=== PATIENT | male | born 1995 ===

== ENCOUNTER 2016-10-30 14:20 | Emergency (ER) | payer OTHER ==
[2016-10-30 14:55] VITALS: BP 114/74; PULSE 67; RESP 18; TEMP 98.2; O2SAT 95
[2016-10-30] MEDS ORDERED: Naproxen 550 mg Tab PO STA (16:17)
[2016-10-30 16:18] LABS: URINE BILIRUBIN NEGATIVE (NEGATIVE); URINE BLOOD NEGATIVE (NEGATIVE); URINE COLOR Yellow (YELLOW); URINE GLUCOSE (UA) NORMAL (Normal); URINE KETONE NEGATIVE (NEGATIVE); URINE LEUKOCYTE ESTERASE NEG Leu/uL (Negative); URINE PROTEIN NEGATIVE (NEGATIVE); URINE UROBILINOGEN NORMAL mg/dL (0.2-1.0); WBC URINE < 1 /hpf (0-5)
[2016-10-30] MEDS ORDERED: Naproxen 550 mg Tab PO ONE (16:25)
--- NOTE | 2016-10-30 16:43 | RAD ---
HISTORY: Left chest pain COMPARISON: None available. TECHNIQUE: Chest PA and lateral FINDINGS: LUNGS: No focal consolidation. 10 mm nodular density projecting over the right lung apex appears to be external to the patient likely related to their clothing. An additional similar-appearing nodular density projects over the soft tissues lateral to the right lung apex. Correlate clinically. Please note that chest x-ray has limited sensitivity for the detection of pulmonary masses. PLEURA: No significant pleural effusion identified. No definite pneumothorax . CARDIOVASCULAR: The cardiomediastinal silhouette appears within normal limits of size. OSSEOUS STRUCTURES: No acute osseous abnormality identified. VISUALIZED UPPER ABDOMEN: Unremarkable. OTHER FINDINGS: None. IMPRESSION: No focal consolidation, significant pleural effusion, or definite pneumothorax identified. 10 mm nodular density projecting over the right lung apex appears to be external to the patient likely related to their clothing. An additional similar-appearing nodular density projects over the soft tissues lateral to the right lung apex. Correlate clinically.
--- NOTE | 2016-10-30 17:38 | US ---
HISTORY: Right testicle pain TECHNIQUE: Realtime sonography through the scrotum with color and doppler flow. COMPARISON: Testicular ultrasound performed 06/16/16 FINDINGS: RIGHT TESTICLE: Measures 4.7 x 2.5 x 3.3 cm. Homogeneous echotexture. Blood flow is demonstrated. RIGHT EPIDIDYMIS: Measures approximately 1.1 x 0.7 x 1.0 cm. LEFT TESTICLE: Measures 5.1 x 2.3 x 3.2 cm. Homogeneous echotexture. Blood flow is demonstrated. LEFT EPIDIDYMIS: Measures approximately 1.2 x 0.9 x 2.0 cm. HYDROCELE: None. VARICOCELE: None. OTHER FINDINGS: None. IMPRESSION: Unremarkable testicular ultrasound as above.
--- NOTE | 2016-10-30 17:53 | C.PDOC ---
Time Seen by Provider: 10/30/16 15:26 Chief Complaint (Nursing): Chest Pain History Per: Patient Onset/Duration Of Symptoms: Days (1) Current Symptoms Are (Timing): Gone Severity: Moderate Quality: Sharp, "Pain" Associated Symptoms: denies: Nausea, Dyspnea, Diaphoresis, Syncope Modifying Factors: None Exacerbating Factors: None Alleviating Factors: None Additional History Per: Prior Records Past Medical History Reviewed: Historical Data, Nursing Documentation, Vital Signs Vital Signs: Last Vital Signs Temp 98.2 F 10/30/16 14:52 Pulse 67 10/30/16 14:52 Resp 18 10/30/16 14:52 BP 114/74 10/30/16 14:52 Pulse Ox 95 10/30/16 14:52 - Medical History PMH: No Chronic Diseases Surgical History: No Surg Hx Family History: States: Unknown Family Hx - Social History Hx Tobacco Use: No Hx Alcohol Use: No Hx Substance Use: No - Immunization History Hx Tetanus Toxoid Vaccination: No Hx Influenza Vaccination: No Hx Pneumococcal Vaccination: No Review Of Systems Except As Marked, All Systems Reviewed And Found Negative. Constitutional: Negative for: Fever, Weakness Cardiovascular: Negative for: Chest Pain Respiratory: Negative for: Shortness of Breath Gastrointestinal: Negative for: Nausea, Vomiting Genitourinary: Positive for: Scrotal Pain (right). Negative for: Dysuria, Penile Discharge Musculoskeletal: Negative for: Neck Pain Skin: Negative for: Rash Neurological: Negative for: Weakness, Numbness, Seizures, Altered Mental Status Physical Exam - Physical Exam Appears: Non-toxic, No Acute Distress Skin: Normal Color, Warm, Dry, No Rash Head: Atraumatic, Normacephalic Eye(s): bilateral: Normal Inspection, PERRL, EOMI Neck: Normal ROM, Supple Chest: Symmetrical, No Deformity Cardiovascular: Rhythm Regular Respiratory: Normal Breath Sounds, No Accessory Muscle Use Gastrointestinal/Abdominal: Soft, No Tenderness Male Genital: Testicular Tenderness (right), No Testicular Swelling, No Inguinal Tenderness, No Inguinal Swelling, No Scrotal Swelling, No Circumcised Extremity: Normal ROM Neurological/Psych: Oriented x3, Normal Motor, Normal Sensation ED Course And Treatment ECG: Interpreted By Me, Viewed By Me ECG Rhythm: Sinus Rhythm ECG Interpretation: No Acute Changes Rate From EC O2 Sat by Pulse Oximetry: 95 Pulse Ox Interpretation: Normal - Radiology CXR: Viewed By Me, Read By Radiologist CXR Interpretation: Yes: No Acute Disease, Heart Size (wnl) - CT Scan/US Testicular pain Other Rad Studies (CT/US): Read By Radiologist, Radiology Report Reviewed CT/US Interpretation: IMPRESSION: Unremarkable testicular ultrasound as above. Reassessment Condition: Improved Disposition Counseled Patient/Family Regarding: Studies Performed, Diagnosis, Need For Followup, Rx Given - Disposition Referrals: Chester Richmond MD [Family Provider] - Disposition: HOME/ ROUTINE Disposition Time: 17:54 Condition: IMPROVED Additional Instructions: Follow up with your doctor this week for further evaluation and treatment. Return to the ER if you develop redness, swelling, fever, shortness of breath, worsening of symptoms or if you have any other concerns. Prescriptions: Naproxen [Naprosyn] 1 tab PO BID PRN #20 tab PRN Reason: Pain Instructions: Chest Pain (ED), Testicle Pain (ED) Print Language: KYRGYZ - Clinical Impression Clinical Impression: Pain in right testicle, Left sided chest pain
--- NOTE | 2016-10-31 11:45 | CARD ---
APPROVED REPORT EKG Measurement Heart [id number] <Conclusion> Normal sinus rhythm Normal ECG
== END 2016-10-30 18:01 | disposition home or self-care (01) ==
LOC: C.ER 14:20
DX: N50.811 Right testicular pain (principal); R07.9 Chest pain, unspecified
CPT/HCPCS: 71020; 76870; 81001; 87086; 87491; 87591; 93005; 99285; G0480 ×8

== ENCOUNTER 2016-12-12 02:17 | Emergency (ER) | payer OTHER ==
[2016-12-12 02:30] VITALS: RESP 20; O2SAT 98
--- NOTE | 2016-12-12 02:51 | C.PDOC ---
History Of Present Illness Patient is a 21 year old male who presents to the ER with a complaint of a toothache for the past 2 days that has worsened Now. Patient states he has an appointment tomorrow with dentist, however, motrin is no longer helping and would like something for the pain. Denies any fever, recent trauma, dental workup, or facial / neck swelling. Time Seen by Provider: 12/12/16 02:46 Chief Complaint (Nursing): Dental Pain History Per: Patient History/Exam Limitations: no limitations Onset/Duration Of Symptoms: Hrs (Worsening today), Days (2) Current Symptoms Are (Timing): Still Present Quality: Positive for: Other (Tooth ache) Recent travel outside of the [place] States: No Past Medical History Reviewed: Historical Data, Nursing Documentation, Vital Signs Vital Signs: Last Vital Signs Temp 98 F 12/12/16 03:51 Pulse 82 12/12/16 03:51 Resp 20 12/12/16 03:51 BP 167/88 H 12/12/16 03:51 Pulse Ox 98 12/12/16 03:51 - Medical History PMH: No Chronic Diseases Surgical History: No Surg Hx Family History: States: Unknown Family Hx - Social History Hx Tobacco Use: No Hx Alcohol Use: Yes Hx Substance Use: No - Immunization History Hx Tetanus Toxoid Vaccination: No Hx Influenza Vaccination: No Hx Pneumococcal Vaccination: No Review Of Systems ENT: Positive for: Mouth Pain (Tooth ache). Negative for: Mouth Swelling, Throat Swelling, Other (Facial swelling) Physical Exam - Physical Exam Appears: Well, Non-toxic Skin: Normal Color, Warm, Dry Head: Atraumatic, Normacephalic Eye(s): bilateral: Normal Inspection, PERRL Oral Mucosa: Moist Tongue: Normal Appearing, No Swelling Lips: Normal Appearing, No Swelling Teeth: Caries (Right lower posterior molar) Gingiva: Normal Appearing, No Erythema, No Swelling, No Abscess Throat: Normal, No Erythema, No Exudate, No Drooling, No Other (Swelling) Neck: Normal ROM, Supple, No Other (swelling) Cardiovascular: Rhythm Regular, No Murmur Neurological/Psych: Oriented x3, Normal Speech, Normal Cognition ED Course And Treatment O2 Sat by Pulse Oximetry: 98 (Room air) Pulse Ox Interpretation: Normal Progress Note: Patient given percocet PO and advised to follow up with dentist appointment as scheduled. Reassessment Condition: Improved Disposition Counseled Patient/Family Regarding: Diagnosis, Need For Followup - Disposition Disposition: HOME/ ROUTINE Disposition Time: 03:12 Condition: STABLE Additional Instructions: Keep appointment with dentist tomorrow Return to ER if worse Instructions: Dental Caries (ED) Print Language: ANGOLAN - Clinical Impression Clinical Impression: Dental caries - Scribe Statement The provider has reviewed the documentation as recorded by the Scribbren Ray All medical record entries made by the Sheng were at my direction and personally dictated by me. I have reviewed the chart and agree that the record accurately reflects my personal performance of the history, physical exam, medical decision making, and the department course for this patient. I have also personally directed, reviewed, and agree with the discharge instructions and disposition.
[2016-12-12] MEDS ORDERED: Oxycodone/Acetaminophen 5/325 mg Tab PO STA (02:57)
[2016-12-12] MEDS ORDERED: Oxycodone/Acetaminophen 5/325 mg Tab ONE (03:25)
[2016-12-12 03:53] VITALS: BP 167/88; PULSE 82; TEMP 98
== END 2016-12-12 03:51 | disposition home or self-care (01) ==
LOC: C.ER 02:17
DX: K02.9 Dental caries, unspecified (principal)